=== PATIENT | male | born 2000 | race Caucasian/White ===

== ENCOUNTER 2021-07-18 17:21 | Emergency (ER) | payer OTHER ==
[2021-07-18 17:52] VITALS: BP 118/63; PULSE 70; TEMP 97.9; BMI 21.2
== END 2021-07-18 18:13 | disposition home or self-care (01) ==
LOC: FER 17:21
DX: S62.602A Fracture of unspecified phalanx of right middle finger, initial encounter for closed fracture (principal); Y04.8XXA Assault by other bodily force, initial encounter
CPT/HCPCS: 73130-TC-RT-FY; 99283-25

== ENCOUNTER 2021-10-25 12:18 | Emergency (ER) | payer OTHER ==
[2021-10-25 12:44] VITALS: BP 130/74; PULSE 64; TEMP 98; BMI 22.5
== END 2021-10-25 13:28 | disposition home or self-care (01) ==
LOC: FER 12:18
DX: M25.532 Pain in left wrist (principal)
CPT/HCPCS: 73090-TC-LT-FY; 73110-TC-LT-FY; 73130-TC-LT-FY; 99283-25